=== PATIENT | female | born 2000 | race Two or more races ===

== ENCOUNTER 2025-02-22 09:34 | Emergency (ER) | payer MEDICAID, SELFPAY ==
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
[2025-02-22 09:40] VITALS: BP 126/65; PULSE 93; RESP 18; TEMP 36.4; O2SAT 98; BMI 27.4
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
[2025-02-22 11:17] VITALS: BP 133/74; PULSE 90; RESP 18; O2SAT 98
[2025-02-22 13:20] VITALS: BP 00/00; PULSE 90; RESP 18; TEMP 36.4; O2SAT 98
== END 2025-02-22 13:23 | disposition home or self-care (01) ==
PROVIDERS: Emergency Provider Emergency Medicine
DX: S40.022A Contusion of left upper arm, initial encounter (principal); M79.622 Pain in left upper arm; Y04.2XXA Assault by strike against or bumped into by another person, initial encounter; Y93.9 Activity, unspecified; Y92.9 Unspecified place or not applicable; Y99.8 Other external cause status
CPT/HCPCS: 73060; 99283

== ENCOUNTER → 2025-02-22 11:05 | Outpatient (BNV) | payer SELFPAY | PROVIDERS: Emergency Provider Emergency Medicine; Visit Provider Radiology Diagnostic Radiology | DX: M79.622 Pain in left upper arm (principal) | CPT/HCPCS: 73060 ==

== ENCOUNTER 2025-05-25 10:40 | Emergency (ER) | payer OTHER, SELFPAY ==
--- NOTE | ~2025-05-25 | XR_ITS ---
EXAMINATION: XR CHEST 2 VIEWS HISTORY: cough COMPARISON: There are no prior studies available for comparison. FINDINGS: PA and lateral views of the chest are submitted. The lungs are expanded and clear. There is no pleural effusion, pneumothorax, or pulmonary vascular congestion. The heart is normal in size. The bones are intact. XR/XR chest 2V IMPRESSION: Normal examination of the chest. Electronically signed by: Nabor Kamara MD 05/25/2025 02:13 PM [facility]
[2025-05-25 11:02] VITALS: BP 123/59; PULSE 82; RESP 18; TEMP 36.7; O2SAT 99; BMI 32.7
--- NOTE | 2025-05-25 11:06 | ED_ITS ---
HPI - General Adult General Chief complaint: Dizziness Stated complaint: fever nausea Time Seen by Provider: 05/25/25 14:18 Source: patient Mode of arrival: ambulatory Limitations: no limitations History of Present Illness ED Provider: JOSE R Aly HPI narrative: hief Complaint: ?Severe headache with eye pain.? History of Present Illness: This is a 24 year old female presents to the ED with a severe, persistent headache associated with eye pain. Symptoms have been present for?> 1 week and have worsened today. She also reports nasal congestion and facial pressure that increases when she lowers her head. She denies a prior history of sinus infection. Recent viral panel done earlier today (COVID-19, influenza, RSV) was negative. She is unsure about any diarrhea and did not endorse nausea, vomiting, or abdominal pain during the encounter. Denies ear pain, sore throat, cp, sob. Patient was asked about fevers or chills and states I think I have a fever but she hasnt checked. No known history of blood clots. She remained home instead of going to a scheduled appointment earlier in the day. Related Data Previous Rx's ?Medication ?Instructions ?Recorded ibuprofen 200 mg tablet (Motrin IB) 600 mg (3 x 200 mg ) PO Q6-8H PRN 02/22/25 pain (scale score 4-6) #30 tabs amoxicillin 875 mg-potassium 1 tab PO BID 7 days #14 t abs 05/25/25 clavulanate 125 mg tablet prednisone 20 mg tablet 40 mg (2 x 20 mg) PO DAILY 5 days 05/25/25 #10 tabs Allergies Allergy/AdvReac Type Severity Reaction Status Date / Time No Known Allergies Allergy Verified 05/25/25 11:10 Review of Systems 2 Review of Systems: Yes all other systems are reviewed and are negative PMFSH Past Medical History Attestation statement: The following information was validated with the patient. Source: old records reviewed and nursing notes reviewed Social History Social History Advance Directives: No Advance Directives Information Provided: Yes Do you have a plan to hurt others: No Plan Physical Exam ED Exam Exam: Appearance: Alert.? Oriented X3.? No acute distress.? Head: Normocephalic, atraumatic, no step-offs or deformities + Reports facial pressure when head is flexed forward. Eyes: Pupils equal, round and reactive to light.? EOMI pain free ENT: Pharynx normal.? Neck: Normal inspection.? Neck supple.? CVS: Normal heart rate and rhythm.? Pulses normal.? Respiratory: No respiratory distress.? Breath sounds normal.? Abdomen: Soft and nontender.? Skin: Skin warm and dry.? Normal skin color.? Normal skin turgor.? Extremities: No lower extremity edema.? No calf ttp. 5/5 strength to bilateral upper and lower extremities Back: No midline tenderness, no C-spine tenderness, full range of motion, no CVA tenderness bilaterally Neuro: Oriented X 3.? No motor deficit.? No sensory deficit. CN 2-12 intact Vital Signs: Vital Signs - 24 hr 05/25/25 11:02 05/25/25 14:13 Temperature 98.0 F Pulse Rate 82 73 Respiratory Rate 18 16 Blood Pressure 123/59 L 99/57 L Pulse Oximetry 99 99 Oxygen Delivery Method Room Air Room Air BMI result Body Mass Index 32.7 vss Course Course Course Narrative: This is an RME: Additional HPI, ROS, PE not included below will be deferred to primary provider. RME assessment and note performed by: Shama Gracia PA-C This is a 61-[id number]-[id number]-lithuanian speaking female who presents to the ER with complaints of dizziness and nausea since last night. Reporting headache, subjective fevers, congestion, and coughing. Plan: Labs, UA, Viral swabs Reevaluation(s) Reevaluation #1: CBC unremarkable. Chemistry with no acute findings needing intervention. Beta hCG negative. Flu, COVID RSV negative. CXR normal. Will treat for sinusitis Time: 15:58 Medications Administered Discontinued Medications Generic Name Dose Route Start Last Admin Trade Name Freq PRN Reason Stop Dose Admin Ketorolac Tromethamine 15 mg 05/25/25 15:30 05/25/25 15:39 Ketorolac Tromethamine 15 Mg/Ml Vial IM 05/25/25 15:31 15 mg ONCE ONE Administration Medical Decision Making Medical Decision Making [facility] Narrative: This is an adult Lao-speaking female presenting with > 1 week of worsening headache, eye pain, congestion, and facial pressure?clinical picture consistent with acute bacterial sinusitis. Problem #1: Acute bacterial sinusitis with associated headache Assessment: Severe frontal headache/eye pain, facial pressure worsened by head- down position, congestion, > 1 week duration, and recent negative viral testing support bacterial sinus infection. Plan: * Analgesia: Ketorolac (Toradol) administered in ED for pain control. IM 15 mg * Antibiotic: Augmentin (amoxicillin-clavulanate) 1 tab PO BID ? 7 days. * Anti-inflammatory: Prednisone 40 mg po daily x5 days prescribed * Discharge home with instructions for prescribed medications and general hope for improvement. Follow-up: No specific follow-up instructions were discussed during the encounter. Differential Diagnosis Differential Diagnoses: The differential diagnosis associated with the presentation includes * Acute bacterial sinusitis (most likely): Headache, eye pain, facial pressure, congestion, and negative viral panel support this diagnosis. * Viral upper respiratory infection (less likely): Considered due to similar symptoms, but viral panel was negative. * Migraine (considered): Severe headache and eye pain could suggest migraine, but associated congestion and facial pressure make this less likely. * Tension headache (possible): Possible given headache, but less likely due to presence of congestion and facial symptoms. * Other causes of headache (e.g., intracranial pathology): Considered, but no concerning features present. * Meningitis: no meningial signs * ICH: uunlikley neuro nonfocal Admission/Observation Consideration of admission/observation: Escalation of care including admission/observation considered Lab Data MDM Lab Attestation statement: I reviewed the patient's lab results. 05/25/25 11:35 05/25/25 11:35 Labs: Lab Results 05/25/25 Range/Units 11:35 WBC 8.9 (4.8-10.8) X10*3/uL RBC 4.73 (4.20-5.50) X10*6/uL Hgb 14.6 (12.0-16.0) g/dl Hct 43.5 (37.0-47.0) % MCV 92.0 (80.0-98.0) fL MCH 30.9 (27.0-33.0) pg MCHC 33.6 (31.0-35.0) g/dl RDW 12.2 (11.0-16.0) % Plt Count 306 (160-400) X10*3/uL MPV 9.5 (9.4-12.3) fL Immature Gran % (Auto) 0.3 (0.0-0.4) % Neut % (Auto) 61.4 (45-73) % Lymph % (Auto) 28.4 (20-40) % Wilkes % (Auto) 7.4 (2-11) % Eos % (Auto) 1.8 (0-4) % Baso % (Auto) 0.7 (0-2) % Lymph # (Auto) 2.5 (1.2-4.9) X10*3/uL Wilkes # (Auto) 0.7 (0.1-1.2) X10*3/uL Eos # (Auto) 0.2 (0.0-0.4) X10*3/uL Baso # (Auto) 0.1 (0.0-0.2) X10*3/uL Abs Immat Gran (auto) 0.03 (0.00-0.03) X10*3/uL Absolute Neuts (auto) 5.5 (2.0-8.3) x10*3/uL Absolute Nucleated RBC 0.000 (0.0-0.012) X10*3/uL Nucleated RBC % (auto) 0.0 (0.0-0.2) /100WBC Sodium 138 (135-145) mmol/L Potassium 3.8 (3.3-5.1) mmol/L Chloride 105 (96-108) mmol/L Carbon Dioxide 27 (22-29) mmol/L Anion Gap 10 L (12-20) BUN 7 L (9-16) mg/dL Creatinine 0.55 (0.5-1.4) mg/dL Estim Creat Clear Calc 153.3 Estimated GFR > 60 Random Glucose 78 (60-115) mg/dL Calcium 9.0 (8.4-10.2) mg/dL Magnesium 1.8 (1.6-2.6) mg/dL Total Bilirubin 0.3 (0.0-1.0) mg/dL Direct Bilirubin 0.1 (0.0-0.5) mg/dL AST 17 (5-31) U/L ALT 13 (0-31) U/L Alkaline Phosphatase 71 (39-117) U/L Total Protein 7.6 (6.5-8.0) g/dL Albumin 4.5 (3.5-5.0) g/dL Beta HCG, Quant < 2 mIU/mL Influenza Type A (PCR) NEGATIVE (Negative) Influenza Type B (PCR) NEGATIVE (Negative) RSV RNA Qual (PCR) NEGATIVE (Negative) SARS-CoV-2 RNA (RT-PCR) NEGATIVE (Negative) Independent Interpretation I performed an independent interpretation of an: Plain X-Ray Interpretation: FINDINGS: PA and lateral views of the chest are submitted. The lungs are expanded and clear. There is no pleural effusion, pneumothorax, or pulmonary vascular congestion. The heart is normal in size. The bones are intact. XR/XR chest 2V IMPRESSION: Normal examination of the chest. Radiology Impression Discussion of test interpretation with radiology: I have reviewed the radiologist's reading. External Record Review External record reviewed: Office record, Outpatient record, Prior outpatient labs and Prior outpatient radiology Prescription Management I considered prescription management with: Antibiotic Discharge Plan Discharge Clinical Impression: Acute bacterial sinusitis Patient Disposition: Home, Self-Care Instructions: Sinusitis (ED) Additional Instructions: Take your medications as prescribed. If you were prescribed antibiotics today, it is important that you take your medication to their entirety, do not skip any doses, do not finish them early. Follow-up with your primary care provider this week. Return to the emergency department with new or worsening symptoms. Such as fevers, chills, chest pain, shortness of breath, nausea, vomiting, dizziness, headache, vision changes, lethargy In case of emergency call 911 Prescriptions: New prednisone 20 mg tablet 40 mg PO DAILY 5 Days Qty: 10 0RF amoxicillin-pot clavulanate 875-125 mg tablet 1 tab PO BID 7 Days Qty: 14 0RF No Action ibuprofen [Motrin IB] 200 mg tablet 600 mg PO Q6-8H PRN (Reason: pain (scale score 4-6)) Qty: 30 0RF Referrals: Physician,Unknown J [Primary Care Provider, Medical] Print Language: Lao
--- NOTE | 2025-05-25 11:08 | ECG_ITS ---
Test Reason : chest pain Blood Pressure : */* mmHG Vent. Rate : 88 BPM Atrial Rate : 88 BPM P-R Int : 158 ms QRS Dur : 68 ms QT Int : 376 ms P-R-T Axes : 44 49 32 degrees QTcB Int : 454 ms Normal sinus rhythm Normal ECG No previous ECGs available Referred By: Shama Gracia Electronically Signed By: MEMO BOCANEGRA MD
[2025-05-25 11:40] LABS: MANUAL DIFF FLAG NO
[2025-05-25 11:43] LABS: Hematocrit 43.5 % (37.0-47.0); Hemoglobin 14.6 g/dl (12.0-16.0); Imm Gran Abs Auto 0.03 X10*3/uL (0.00-0.03); Imm Gran Pct Auto 0.3 % (0.0-0.4); Lymphocytes Absolute Auto 2.5 X10*3/uL (1.2-4.9); Mean Corpuscular HGB Conc 33.6 g/dl (31.0-35.0); Mean Corpuscular Hemoglobin 30.9 pg (27.0-33.0); Mean Corpuscular Volume 92.0 fL (80.0-98.0); NRBC Abs Auto 0.000 X10*3/uL (0.0-0.012); NRBC Pct Auto 0.0 /100WBC (0.0-0.2); Platelet Count 306 X10*3/uL (160-400); Red Blood Count 4.73 X10*6/uL (4.20-5.50); White Blood Count 8.9 X10*3/uL (4.8-10.8)
[2025-05-25 12:03] LABS: Alanine Aminotransferase 13 U/L (0-31); Albumin Level 4.5 g/dL (3.5-5.0); Alkaline Phosphatase 71 U/L (39-117); Anion Gap 10 (12-20); Aspartate Amino Transferase 17 U/L (5-31); Blood Urea Nitrogen 7 mg/dL (9-16); Calcium 9.0 mg/dL (8.4-10.2); Carbon Dioxide 27 mmol/L (22-29); Chloride 105 mmol/L (96-108); Creatinine Clr Calc Pharmacy 153.3; Estimated Glomerular Filt Rate > 60; Magnesium 1.8 mg/dL (1.6-2.6); Potassium 3.8 mmol/L (3.3-5.1); Sodium 138 mmol/L (135-145); Total Protein 7.6 g/dL (6.5-8.0)
[2025-05-25 12:19] LABS: Resp Syncy Virus RNA Qual PCR NEGATIVE (Negative); SARS COV2 PCR INHOUSE NEGATIVE (Negative)
[2025-05-25 14:13] VITALS: BP 99/57; PULSE 73; RESP 16; O2SAT 99
[2025-05-25 16:13] VITALS: BP 99/57; PULSE 73; RESP 16; TEMP -17.7; TEMP 0; O2SAT 99
== END 2025-05-25 16:15 | disposition home or self-care (01) ==
PROVIDERS: Physician Assistant Medical; Emergency Provider Emergency Medicine
DX: J01.90 Acute sinusitis, unspecified (principal); R05.9 Cough, unspecified; Z03.818 Encounter for observation for suspected exposure to other biological agents ruled out
CPT/HCPCS: 71046; 80048; 80076; 83735; 84702; 85025; 87637; 93005; 96372; 99284; J1885

== ENCOUNTER → 2025-05-25 11:08 | Outpatient (BNV) | payer MEDICAID, SELFPAY | PROVIDERS: Visit Provider Internal Medicine Cardiovascular Disease | DX: R07.9 Chest pain, unspecified (principal) | CPT/HCPCS: 93010 ==

== ENCOUNTER → 2025-05-25 12:55 | Outpatient (BNV) | payer OTHER, SELFPAY | PROVIDERS: Visit Provider Radiology Diagnostic Radiology | DX: R05.9 Cough, unspecified (principal) | CPT/HCPCS: 71046 ==